=== PATIENT | male | born 1960 | race Caucasian/White ===

== ENCOUNTER 2020-09-08 14:07 | Outpatient (CLI) | payer BC, SELFPAY ==
[2020-09-08 14:23] LABS: Basophils Absolute Auto 0.06 K/mm3 (0.00-0.10); Basophils Percent Auto 0.5 % (0.0-1.0); Eosinophils Absolute Auto 0.42 K/mm3 (0.02-0.50); Eosinophils Percent Auto 3.3 % (1.0-6.0); Hematocrit 39.7 % (40.0-54.0); Hemoglobin 13.5 g/dL (14.0-18.0); Immature Granulocyte Absolute 0.06 K/mm3 (0.00-0.00); Immature Granulocyte Percent A 0.5 % (0.0-0.0); Lymphocytes Absolute Auto 2.22 K/mm3 (1.10-4.50); Lymphocytes Percent Auto 17.3 % (18.0-42.0); Mean Corpuscular Hemoglobin 31.2 pg (27.0-31.0); Mean Corpuscular Volume 91.7 fL (78.0-102.0); Mean Platelet Volume 8.7 fl (8.7-11.0); Monocytes Absolute Auto 1.37 K/mm3 (0.10-0.90); Monocytes Percent Auto 10.7 % (2.0-11.0); Neutrophils Absolute Auto 8.7 K/mm3 (1.7-7.2); Neutrophils Percent Auto 67.7 % (50.0-70.0); Platelet Count Result 197 K/mm3 (150-420); Red Blood Count 4.33 M/mm3 (4.70-6.10); Red Cell Distribution Width 12.8 % (11.6-14.4); White Blood Count 12.9 K/mm3 (4.8-10.8)
[2020-09-08 15:46] LABS: Alanine Aminotransferase 37 U/L (16-63); Albumin Level 3.3 g/dL (3.4-5.0); Alkaline Phosphatase 91 U/L (46-116); Anion Gap 7 mmol/L (8-16); Aspartate Amino Transferase 23 U/L (15-37); Bilirubin,Total 0.5 mg/dL (0.00-1.00); Blood Urea Nitrogen 14 mg/dL (7-18); Calcium 8.8 mg/dL (8.5-10.1); Carbon Dioxide 31 mmol/L (21-32); Chloride 101 mmol/L (98-108); Estimated Glomerular Filt Rate > 60; Glucose 109 mg/dL (70-99); Lipase 57 U/L (73-393); Osmolality Calculated 289 mOsm/kg (285-295); Potassium 3.9 mmol/L (3.5-5.1); Sodium 139 mmol/L (136-145); Total Protein 7.1 g/dL (6.4-8.2)
== END 2020-09-08 14:08 | disposition home or self-care (01) ==
LOC: CHSLAB 14:09
PROVIDERS: PCP Family Medicine; Visit Provider Family Medicine
DX: R10.9 Unspecified abdominal pain (principal)
CPT/HCPCS: 36415; 80053; 83690; 85025

== ENCOUNTER 2021-03-10 11:02 | Outpatient (CLI) | payer BC, SELFPAY ==
[2021-03-10 12:57] LABS: SARS-CoV-2 RNA PCR Negative (Negative)
== END 2021-03-10 11:03 | disposition home or self-care (01) ==
LOC: CHSLAB 11:05
PROVIDERS: PCP Family Medicine; Visit Provider Family Medicine
DX: R05 Cough (principal); Z20.822 Contact with and (suspected) exposure to COVID-19
CPT/HCPCS: C9803; U0003; U0005

== ENCOUNTER 2021-09-18 10:10 | Outpatient (CLI) | payer BC, SELFPAY ==
--- NOTE | ~2021-09-18 | CT_ITS ---
EXAMINATION: CT lung screening DATE: 09/18/2021 10:24 INDICATION: Personal history of nicotine dependence. TECHNIQUE: Computed tomography (CT) of the chest was performed without intravenous contrast. The dose -length product was 375.03 mGy-cm. Automated exposure control and iterative reconstruction technique were employed. COMPARISON: 07/24/2018 FINDINGS: Moderate emphysema. There is an 8 mm left upper lobe nodule which is not significantly razo ged from prior examination dated 07/24/2018. Moderate emphysema. No new pulmonary nodules or masses. No endobronchial lesions. No thoracic lymphadenopathy. The upper abdomen is unremarkable. There is a partially visualized abdominal aortic stent. Mild thoracic lymphadenopathy. Mild compression deformit ies of mid thoracic vertebra appear chronic. IMPRESSION: 1. Lung-RADS category 2: Benign appearance or behavior. Continue annual screening with noncontrast lo w-dose chest CT in 12 months. Reviewed, dictated and finalized at location B. NET STRINGER IMPRESSION: 1. Lung-RADS category 2: Benign appearance or behavior. Continue annual screeni ng with noncontrast low-dose chest CT in 12 months.
== END 2021-09-18 10:11 | disposition home or self-care (01) ==
LOC: CHSIMG 10:11
PROVIDERS: PCP Family Medicine; Visit Provider Family Medicine
DX: Z12.2 Encounter for screening for malignant neoplasm of respiratory organs (principal); Z87.891 Personal history of nicotine dependence
CPT/HCPCS: 71271

== ENCOUNTER 2021-09-21 08:41 | Outpatient (CLI) | payer BC, SELFPAY | END 2021-09-21 08:42 | disposition home or self-care (01) | LOC: CHSCARD 08:47 | PROVIDERS: PCP Family Medicine; Visit Provider Family Medicine | DX: J44.9 Chronic obstructive pulmonary disease, unspecified (principal) | CPT/HCPCS: 94060; 94726; 94729 ==

== ENCOUNTER 2022-09-07 02:25 | Emergency (ER) | payer BC, SELFPAY ==
[2022-09-07] VITALS (15 sets, daily range): BP systolic 129–157; BP diastolic 65–103; PULSE 60–76; RESP 12–19; TEMP 36.6; O2SAT 92–96
--- NOTE | ~2022-09-07 | XR_ITS ---
Portable chest x-ray Comparison: 07/23/2019 Clinical History: Shortness of breath Findings: Lungs are clear, without focal consolidation or pleural effusion. Possible COPD. Cardiome diastinal silhouette is stable, with pacemaker device. Bones and soft tissues are unremarkable. Impression: COPD. Clear lungs. Pacemaker device. Reviewed, dictated and finalized at location . GUIDER STOVES Impression: COPD. Clear lungs. Pacemaker device.
--- NOTE | ~2022-09-07 | CT_ITS ---
Clinical Indication: Shortness of breath CT Scan of the Chest with Contrast: Technique: Contiguous sections were acquired throughout the chest after intravenous administration of 100 cc of Omnipaque 350. Dose reduction technique was used on this scan by utilizing automated expos ure control and iterative reconstruction technique. The dose-length product (DLP) was 937.41 mGy-cm. COMPARISON: 09/18/2021 an 07/24/2018 Findings: There is no evidence of any significant mediastinal, hilar or axillary lymphadenopathy. There is no f illing defect in the pulmonary arterial tree to suggest pulmonary embolus. There is no evidence of ao rtic dissection or aneurysm. There is no evidence of pleural or pericardial effusion. Moderate emphysema noted. There is a 9 mm ovoid left upper lobe pulmonary nodule (axial image 42), wh ich is essentially unchanged from prior exams. Images through the upper abdomen reveal no abnormalities. Impression: No evidence of pulmonary embolus, aortic dissection, or aortic aneurysm. Moderate emphysema. 9 mm left upper lobe pulmonary nodule, essentially stable since 07/24/2018. Stability over this time interval is consistent with benignity. Reviewed, dictated and finalized at location . METRIST OWNER Impression: No evidence of pulmonary embolus, aortic dissection, or aortic aneurysm. Moderate emphysema. 9 mm left upper lobe pulmonary nodule, essentially stable since 07/24/2018. Sta bility over this time interval is consistent with benignity.
--- NOTE | 2022-09-07 02:29 | ECG_ITS ---
Measurements Intervals [place] Rate: 72 P: 55 RI: 195 QRS: -46 QRSD: 142 T: 107 QT: 423 QTc: 464 Interpretive Statements SINUS RHYTHM LEFT AXIS DEVIATION [QRS AXIS < -30] LEFT VENTRICULAR HYPERTROPHY WITH SECONDARY REPOLARIZATION ABNORMALITY INTRAVENTRICULAR CONDUCTION DELAY ABNORMAL ECG COMPARED TO ECG 04/06/2019 09:17:50 NO SIGNIFICANT CHANGES Electronically Signed On 09-07-2022 13:20:13 ADMINISTRATIVE AND PROGRAM SPECIALIST by Andrew Russo M.D.
[2022-09-07 02:50] LABS: Basophils Absolute Auto 0.08 K/mm3 (0.00-0.10); Eosinophils Absolute Auto 0.26 K/mm3 (0.02-0.50); Eosinophils Percent Auto 3.1 % (1.0-6.0); Hematocrit 50.2 % (40.0-54.0); Hemoglobin 16.2 g/dL (14.0-18.0); Immature Granulocyte Absolute 0.03 K/mm3 (0.00-0.00); Immature Granulocyte Percent A 0.4 % (0.0-0.0); Lymphocytes Absolute Auto 2.94 K/mm3 (1.10-4.50); Lymphocytes Percent Auto 35.3 % (18.0-42.0); Mean Corpuscular HGB Conc 32.3 g/dL (32.0-36.0); Mean Corpuscular Hemoglobin 30.6 pg (27.0-31.0); Mean Corpuscular Volume 94.7 fL (78.0-102.0); Mean Platelet Volume 8.6 fl (8.7-11.0); Monocytes Absolute Auto 1.18 K/mm3 (0.10-0.90); Monocytes Percent Auto 14.2 % (2.0-11.0); Neutrophils Absolute Auto 3.8 K/mm3 (1.7-7.2); Platelet Count Result 209 K/mm3 (150-420); Red Cell Distribution Width 13.4 % (11.6-14.4); White Blood Count 8.3 K/mm3 (4.8-10.8)
[2022-09-07] MEDS: methylPREDNISolone SOD SUCC 125 MG VIAL IV PUSH (02:50)
[2022-09-07 03:00] LABS: Partial Thromboplastin Time 37.1 SEC (23.90-30.70); Prothrombin Time 10.9 Seconds (9.50-12.10)
[2022-09-07 03:02] LABS: Base Excess ABG 0.7 mmol/L (0-2); HCO3 ABG 25.3 mmol/L (23-29); Oxygen Content ABG 22.5 %vol (16.0-22.0); Oxygen Saturation ABG 96.7 % (95-97); Oxyhemoglobin 91.5 % (94-100); PCO2 ABG 40.8 mmHg (35-45); PO2 ABG 87.3 mmHg (80-90); Total Hemoglobin 17.5 g/dL (12.0-18.0); pH ABG 7.41 (7.35-7.45)
[2022-09-07 03:03] LABS: Modified Allen's Test Pass; Site Drawn RIGHT RADIAL
[2022-09-07 03:04] LABS: Device OTHER DEVICE
[2022-09-07 03:05] LABS: Alanine Aminotransferase 28 U/L (16-63); Albumin Level 3.6 g/dL (3.4-5.0); Alkaline Phosphatase 87 U/L (46-116); Anion Gap 5 mmol/L (8-16); Aspartate Amino Transferase 22 U/L (15-37); Bilirubin,Total 0.3 mg/dL (0.00-1.00); Blood Urea Nitrogen 20 mg/dL (7-18); Calcium 8.6 mg/dL (8.5-10.1); Carbon Dioxide 31 mmol/L (21-32); Chloride 105 mmol/L (98-108); Estimated CRCL calculation 103 ml/min; Estimated Glomerular Filt Rate > 60; Glucose 110 mg/dL (70-99); Magnesium 1.9 mg/dL (1.8-2.4); NT Pro B Type Natriuretic Pept 53 pg/mL (0-125); Osmolality Calculated 295 mOsm/kg (285-295); Potassium 3.9 mmol/L (3.5-5.1); Sodium 141 mmol/L (136-145); Total Protein 6.8 g/dL (6.4-8.2); Troponin I 15.5 ng/L (0.00-60.4)
[2022-09-07] MEDS: IPRATROPIUM 0.5 MG/ALBUTEROL SULFATE 2.5 MG AMPUL.NEB 3 ML INHALATION (03:27)
[2022-09-07 03:30] LABS: Influenza A QL RT-PCR Negative (Negative); Influenza B QL RT-PCR Negative (Negative); RSV RNA, RT-PCR Negative (Negative); SARS-CoV-2 RNA PCR Negative (Negative)
[2022-09-07 03:42] LABS: Add Urine Microscopic? YES; Appearance Urine Clear (Clear); Bilirubin Urine Negative (Negative); Blood Urine 2+ (Negative); Color Urine Yellow (Yellow); Glucose Urine UA Negative (Negative); Ketones Urine Negative (Negative); Leukocyte Esterase Ur Negative LEU/UL (Negative); Nitrate Urine Negative (Negative); Protein Urine Negative (Negative); Specific Grav Ur 1.015 (1.010-1.020); Urobilinogen Urine 0.2 mg/dL (0.2-1.0); pH Urine 6.5 (5.0-8.0)
[2022-09-07 03:47] LABS: Bacteria Urine Trace /hpf; RBC Urine 21-50 /hpf (0-2); Squamous Epithelial Cell Urine None seen /hpf (Few); WBC Urine 0-3 /hpf (0-3)
--- NOTE | 2022-09-07 05:25 | ED.SOB ---
HPI - SOB/Dyspnea General Chief Complaint: Shortness of Breath/Dyspnea Stated Complaint: SOB Source: patient and family Mode of arrival: EMS Limitations: no limitations History of Present Illness HPI Narrative: this is a 8-year-old gentleman that presents with increasing shortness of breath x1 week and overnight early this morning felt like he was having harder his breathing productive no chest pain no fever chills no abdominal pain no flank pain, patient does have a history of COPD and is a smoker with a history of hypertension. MD elicited complaint: shortness of breath and cough Pertinent past history: COPD Onset (ago): day(s) Timing: constant Severity: mild Related Data Home Medications Medication Instructions Recorded Confirmed amlodipine 5 mg tablet 5 mg PO DAILY 09/07/22 09/07/22 desmopressin 10 mcg/spray (0.1 mL) 10 spray intranasal DAILY 09/07/22 09/07/22 nasal spray (non-refrigerated) metoprolol succinate 25 mg 25 mg PO DAILY 09/07/22 09/07/22 tablet,extended release 24 hr testosterone cypionate 200 mg/mL 200 mg IM [id number] 09/07/22 09/07/22 intramuscular oil Allergies Allergy/AdvReac Type Severity Reaction Status Date / Time aspirin Allergy Unknown Other Verified 09/07/22 02:52 No Known Allergies Allergy Unverified 04/10/19 12:39 Review of Systems Review of Systems: All systems reviewed & are unremarkable except as noted in HPI and below PMFSH Past Medical History Medical History HTN (hypertension) Family History Family History Sibling Family history of malignant neoplasm Mother Family history of chronic obstructive pulmonary disease Family history of malignant neoplasm of breast Other Diabetes mellitus Family history of cardiovascular disease Social History Social History Smoking status: Heavy tobacco smoker Alcohol intake: never Exam Const: General: healthy appearing Nutritional Appearance: well nourished Orientation/consciousness: patient oriented x3 Limitations: no limitations HENMT: Head: normal to inspection Face/Nose/Sinus: Normal external nose present Face and sinus: normal facial exam Mouth: Yes Normal oral and palatal mucosa present Eyes: Conjunctivae: conjunctivae normal Pupils: Equal, round and reactive pupils present EOM: EOMs intact bilaterally Direct Ophthalmoscopy: no photophobia Neck: Neck: normal visual inspection Chest: Chest palpation & inspection: normal inspection of the chest Resp: Effort & Inspection: normal respiratory effort Auscultation: clear to auscultation bilaterally Cardio: Rate: regular rate Rhythm: regular rhythm GI: GI Palp: Yes Soft to palpation Auscultation: normal bowel sounds : General: Yes bladder normal to palpation Urinary Catheter: Urinary Catheter: patent and draining Back/Spine/Pelvis: Back: no CVA tenderness Skin: General skin exam: normal color Rashes: no rashes Wounds: no wounds Neuro: General: patient oriented x3 Cranial nerves: Yes Nystagmus not present Speech: normal speech Extrem: General: normal to inspection Psych: Mental Status: mental status grossly normal Affect: normal affect Course Course Emergency Course: patient received a breathing treatment and IV steroids patient breathing has improved labs reviewed patient had an elevated D-dimer and CTA performed shows no pulmonary embolism Vital Signs Vital signs: Vital Signs Temperature 36.6 C 09/07/22 02:31 Pulse Rate 72 09/07/22 02:31 Respiratory Rate 18 09/07/22 02:31 Blood Pressure 129/103 H 09/07/22 02:31 Pulse Oximetry 96 09/07/22 02:31 Oxygen Delivery Room Air 09/07/22 02:31 Temperature 36.6 C 09/07/22 02:31 Pulse Rate 68 09/07/22 03:33 Respiratory Rate 12 09/07/22 03:33 Blood Pressure 137/71 09/07/22 03:33 Pulse Oximetr
== END 2022-09-07 05:36 | disposition home or self-care (01) ==
PROVIDERS: Emergency Provider Emergency Medicine; PCP Family Medicine
DX: J44.1 Chronic obstructive pulmonary disease with (acute) exacerbation (principal); I10 Essential (primary) hypertension; F17.200 Nicotine dependence, unspecified, uncomplicated; Z20.822 Contact with and (suspected) exposure to COVID-19
CPT/HCPCS: 36415; 36600; 71045; 71275; 80053; 81001; 82805; 83735; 83880; 84484; 85025; 85380; 85610; 85730; 87040; 87637; 93005; 94640; 96374; 99284; J2930; Q9967

== ENCOUNTER 2023-08-22 15:36 | Outpatient (CLI) | payer BC, OTHER, SELFPAY ==
--- NOTE | ~2023-08-22 | XR_ITS ---
EXAMINATION: XR chest 2V 08/22/2023 15:52 INDICATION: Shortness of breath. History of COPD. PROCEDURE: 2 view chest COMPARISON: Comparison to multiple prior studies sequentially, with oldest reviewed study dated 06/29. FINDINGS: The lungs are clear. The cardiomediastinal silhouette is within normal limits. There are no pleural effusions. There is no pneumothorax suspected. Stable position of pacemaker leads. IMPRESSION: 1: NO ACUTE CARDIOPULMONARY DISEASE. Reviewed, dictated and finalized at location L. OR OF OPTOMETRY
== END 2023-08-22 15:37 | disposition home or self-care (01) ==
LOC: CHSIMG 15:37
PROVIDERS: PCP Family Medicine; Visit Provider Family Medicine
DX: R05.3 Chronic cough (principal)
CPT/HCPCS: 71046

== ENCOUNTER 2023-08-26 09:58 | Outpatient (CLI) | payer BC, OTHER, SELFPAY ==
--- NOTE | 2023-08-26 10:03 | ECHO_ITS ---
Patient Info Name: Alejandro Jang Age: 63 years : 1960 Gender: Male Ht: 75 in Wt: 260 lbs BSA: 2.53 m2 HR: 75 bpm BP: 168 / 88 mmHg Heart Rhythm: Sinus Rhythm Technical Quality: Good Exam Date: 08/26/2023 11:11 AM Exam Location: Echo Lab Patient Status: Outpatient Admit Date: 08/26/2023 Staff Ordering Physician: Niranjan Rose MD Manager Transplant: Mireille Bernal RDCS Attending Provider: Niranjan Rose MD Referring Physician: Rose HALL; Exam Type: CA echo doppler color flow Study Info Indications - ABN EKG Complete two-dimensional, color flow and Doppler transthoracic echocardiogram is performed. Summary 1. Complete two-dimensional, color flow and Doppler transthoracic echocardiogram is performed. 2. Left ventricular chamber dimension is normal. 3. Left ventricular systolic function is normal, estimated at 55-60%. 4. There is mild concentric increased left ventricular wall thickness. 5. The left ventricular diastolic function is grade I diastolic dysfunction. 6. E/e' 8 is minimally elevated. 7. No pulmonary hypertension, estimated pulmonary arterial systolic pressure is 11 mmHg. Left Ventricle E/e' 8 is minimally elevated. Left ventricular chamber dimension is normal. Left ventricular systolic function is normal, estimated at 55-60%. There is mild concentric increased left ventricular wall thickness. The left ventricular diastolic function is grade I diastolic dysfunction. Right Ventricle Right ventricular systolic function is normal based on normal TAPSE 2.9 cm. Right ventricular chamber dimension is not well visualized. Left Atria Left atrial chamber dimension is normal. Right Atria Right atrial chamber dimension is normal. Aortic Valve The aortic valve is trileaflet. There is no aortic valve stenosis. There is no aortic valve regurgitation. Pulmonic Valve There is no pulmonic regurgitation. Mitral Valve There is no mitral valve stenosis. There is no mitral valve regurgitation. Tricuspid Valve There is no tricuspid valve regurgitation. No pulmonary hypertension, estimated pulmonary arterial systolic pressure is 11 mmHg. Pericardium/Pleural There is no pericardial effusion. Inferior Vena Cava Normal inferior vena cava with >50% collapse upon inspiration consistent with normal right atrial pressure, 5 mmHg. Aorta The aortic root size at the sinus of Valsalva is normal. Left Ventricular Outflow Tract Name Value Normal LVOT 2D LVOT Diameter 2.1 cm LVOT Doppler LVOT Peak Velocity 96 cm/s LVOT Peak Gradient 3 mmHg LVOT Mean Gradient 1 mmHg LVOT VTI 22 cm LVOT VTI/AV VTI Ratio 0.7 LVOT Stroke Volume 81 ml Pulmonic Valve Name Value Normal RVOT Doppler RVOT Peak Gradient 2 mmHg PV Doppler -------
== END 2023-08-26 09:59 | disposition home or self-care (01) ==
LOC: CHSIMG 10:00
PROVIDERS: PCP Family Medicine; Visit Provider Family Medicine
DX: R94.31 Abnormal electrocardiogram [ECG] [EKG] (principal)
CPT/HCPCS: 93306

== ENCOUNTER 2023-09-20 08:32 | Outpatient (CLI) | payer BC, SELFPAY ==
--- NOTE | ~2023-09-20 | CT_ITS ---
CT Scan of the Chest without Contrast: Clinical Indication: Lung cancer screening, smoking history Technique: Contiguous sections were acquired throughout the chest without intravenous contrast. Dose reduction technique was used on this scan by utilizing automated exposure control and iterative recon struction technique. The dose-length product (DLP) was 369.67 mGy-cm. COMPARISON: 09/07/2022 Findings: There is no evidence of any significant mediastinal, hilar or axillary lymphadenopathy. The mediastin al soft tissues appear normal. There is no evidence of pleural or pericardial effusion. Stable 9 mm left upper lobe pulmonary nodule present. There is mild emphysematous change of the lungs . Images through the upper abdomen reveal probable partial visualization of the upper aspect of an abdo mata aortic aneurysm. Impression: Lung RADS 2: Benign appearance. 12 month follow-up screening CT advised. Possible partially imaged abdominal aortic aneurysm. Consider dedicated imaging evaluation as indicat ed. Reviewed, dictated and finalized at [facility]. ORK PROJECT MANAGER Impression: Lung RADS 2: Benign appearance. 12 month follow-up screening CT advised. Possible partially imaged abdominal aortic aneurysm. Consider dedicated imaging evaluation as indicated.
== END 2023-09-20 08:33 | disposition home or self-care (01) ==
LOC: CHSIMG 08:33
PROVIDERS: PCP Family Medicine; Visit Provider Family Medicine
DX: Z12.2 Encounter for screening for malignant neoplasm of respiratory organs (principal); Z87.891 Personal history of nicotine dependence
CPT/HCPCS: 71271

== ENCOUNTER 2023-10-02 12:45 | Outpatient (CLI) | payer BC, SELFPAY | END 2023-10-02 12:46 | disposition home or self-care (01) | LOC: CHSCARD 12:46 | PROVIDERS: PCP Family Medicine; Visit Provider Family Medicine | DX: J44.9 Chronic obstructive pulmonary disease, unspecified (principal) | CPT/HCPCS: 94060; 94726; 94729 ==

== ENCOUNTER 2023-12-24 10:09 | Outpatient (CLI) | payer BC, SELFPAY ==
--- NOTE | ~2023-12-24 | XR_ITS ---
Right Hand Technique: PA, oblique, and lateral views were obtained. Clinical History: Wire in the second digit Findings: No acute fracture or dislocation is seen. Osseous alignment is anatomic. Joint spaces are p reserved. Possible soft tissue swelling of the index finger. No radiopaque foreign body seen. Impression: Possible soft tissue swelling of the index finger. No radiopaque foreign body seen. Reviewed, dictated and finalized at location . Impression: Possible soft tissue swelling of the index finger. No radiopaque foreign body s een.
[2023-12-24 10:26] LABS: Basophils Absolute Auto 0.07 K/mm3 (0.00-0.10); Basophils Percent Auto 0.6 % (0.0-1.0); Eosinophils Absolute Auto 0.09 K/mm3 (0.02-0.50); Eosinophils Percent Auto 0.8 % (1.0-6.0); Hematocrit 46.8 % (40.0-54.0); Hemoglobin 15.7 g/dL (14.0-18.0); Immature Granulocyte Absolute 0.05 K/mm3 (0.00-0.00); Immature Granulocyte Percent A 0.4 % (0.0-0.0); Lymphocytes Absolute Auto 2.42 K/mm3 (1.10-4.50); Lymphocytes Percent Auto 20.6 % (18.0-42.0); Mean Corpuscular HGB Conc 33.5 g/dL (32-36); Mean Corpuscular Hemoglobin 31.1 pg (27.0-31.0); Mean Corpuscular Volume 92.7 fL (78.0-102.0); Mean Platelet Volume 8.6 fl (8.7-11.0); Monocytes Percent Auto 7.6 % (2.0-11.0); Neutrophils Absolute Auto 8.24 K/mm3 (1.70-7.20); Platelet Count Result 203 K/mm3 (150-420); Red Blood Count 5.05 M/mm3 (4.70-6.10); Red Cell Distribution Width 13.1 % (11.6-14.4); White Blood Count 11.8 K/mm3 (4.8-10.8)
[2023-12-24 10:54] LABS: Alanine Aminotransferase 35 U/L (16-63); Albumin Level 3.8 g/dL (3.4-5.0); Alkaline Phosphatase 88 U/L (46-116); Anion Gap 9 mmol/L (4-12); Aspartate Amino Transferase 26 U/L (15-37); Bilirubin,Total 0.5 mg/dL (0.00-1.00); Blood Urea Nitrogen 12 mg/dL (7-18); Calcium 8.7 mg/dL (8.5-10.1); Carbon Dioxide 29 mmol/L (21-32); Chloride 103 mmol/L (98-108); Estimated Glomerular Filt Rate > 60; Glucose 102 mg/dL (70-99); Osmolality Calculated 291 mOsm/kg (285-295); Potassium 4.2 mmol/L (3.5-5.1); Sodium 141 mmol/L (136-145); Total Protein 6.8 g/dL (6.4-8.2)
== END 2023-12-24 10:10 | disposition home or self-care (01) ==
LOC: CHSLAB 10:11
PROVIDERS: PCP Family Medicine; Visit Provider Nurse Practitioner Family
DX: S69.91XA Unspecified injury of right wrist, hand and finger(s), initial encounter (principal); M25.441 Effusion, right hand
CPT/HCPCS: 36415; 73130; 80053; 85025

== ENCOUNTER 2023-12-30 14:58 | Outpatient (CLI) | payer BC, SELFPAY ==
--- NOTE | ~2023-12-30 | XR_ITS ---
EXAMINATION: XR finger 2nd RT min 2V DATE: 12/30/2023 15:23 INDICATION: Right hand second digit pain. TECHNIQUE: 3 views of right hand second digit were obtained. COMPARISON: Right hand radiographs 12/24/2023 FINDINGS: Bone alignment is normal. No fracture. There is mild osteoarthritis of second metacarpophal angeal joint. IMPRESSION: 1. Mild osteoarthritis of second metacarpophalangeal joint. Reviewed, dictated and finalized at location A.
[2023-12-30 15:18] LABS: Hematocrit 46.1 % (40.0-54.0); Hemoglobin 15.2 g/dL (14.0-18.0); Mean Corpuscular Hemoglobin 30.8 pg (27.0-31.0); Mean Corpuscular Volume 93.3 fL (78.0-102.0); Mean Platelet Volume 8.3 fl (8.7-11.0); Platelet Count Result 207 K/mm3 (150-420); Red Blood Count 4.94 M/mm3 (4.70-6.10); Red Cell Distribution Width 13.3 % (11.6-14.4); White Blood Count 9.5 K/mm3 (4.8-10.8)
[2023-12-30 16:34] LABS: Anion Gap 9 mmol/L (4-12); Blood Urea Nitrogen 13 mg/dL (7-18); Calcium 8.5 mg/dL (8.5-10.1); Carbon Dioxide 29 mmol/L (21-32); Chloride 103 mmol/L (98-108); Estimated Glomerular Filt Rate > 60; Glucose 87 mg/dL (70-99); Osmolality Calculated 291 mOsm/kg (285-295); Potassium 3.9 mmol/L (3.5-5.1); Sodium 141 mmol/L (136-145)
== END 2023-12-30 14:59 | disposition home or self-care (01) ==
LOC: CHSLAB 15:01
PROVIDERS: PCP Family Medicine; Visit Provider Family Medicine
DX: M79.641 Pain in right hand (principal); M19.041 Primary osteoarthritis, right hand
CPT/HCPCS: 36415; 73140; 80048; 85027

== ENCOUNTER 2024-10-09 07:07 | Outpatient (CLI) | payer BC, SELFPAY ==
--- NOTE | ~2024-10-09 | CT_ITS ---
CT Scan of the Chest without Contrast: Clinical Indication: Lung cancer screening, nicotine dependence Technique: Contiguous sections were acquired throughout the chest without intravenous contrast. Dose reduction technique was used on this scan by utilizing automated exposure control and iterative recon struction technique. The dose-length product (DLP) was 258.31 mGy-cm. COMPARISON: 09/20/2023 Findings: There is no evidence of any significant mediastinal, hilar or axillary lymphadenopathy. The mediastin al soft tissues appear normal. There is no evidence of pleural or pericardial effusion. Stable 9 mm circumscribed ovoid nodule in the left upper lobe present (axial image 45). There is mild to moderate emphysema. Images through the upper abdomen reveal no abnormalities. Impression: Lung RADS 2: Benign appearance. 12 month follow-up screening CT advised. Reviewed, dictated and finalized at [facility]. Impression: Lung RADS 2: Benign appearance. 12 month follow-up screening CT advised.
--- OUTSIDE RECORDS SUMMARY | 2024-10-09 07:11 | XMS_ITS | Encounter Summary ---
Author Organization [facility] Address [address] [place] [address] Care Team Providers Care Flux Plant Operator Name Role Phone Niranjan Rose MD Primary Care Provider [phone] Jonathan Becker MD Unavailable Unavailabl e Elba Maec MD Unavailable [phone] Frank Smith MD Unavailable [phone] Ryan Patricia MD Unavailable [phone] Orlando Sosa MD Unavailable Encounter Details Date Type Department Care Team (Late st Contact Info) Description 01/23/2023 MyChart Message Enc [facility] [address] [id number] [facility] Provider Air Quality Message Social History Tobacco Use Types Packs/Day Years Used Date Smoking Tobacco: Every Day Cigarettes Smokeless Tobacco: Never Alcohol Use Standard Drinks/Week Comments No 0 (1 standard drink = 0.6 oz pur e alcohol) Sex and Gender Information Value Date Recorded Sex Assigned at Male 09/25/2024 4:31 PM PROFESSOR OF PRACTICE Legal Sex Male 10:15 AM CDT Gender Identity Not on file Sexual Orientation Not on file 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 Answer Date of Assessment Author Status No 06/18/2020 9:56 PM PROFESSOR OF PRACTICE Activ e * Do you have serious difficulty walking or climbing stairs? Answer Date of Assessment Author Status No 06/18/2020 9:56 PM Mere Ortega RN Active * Do you have difficulty dressing or bathing? Answer Date of Assessment Author Status No 06/18/2020 9:56 PM Mere Ortega RN Active * Because of a physical, mental, or emotional condition, do you have difficulty doing errands alone such as visiting a doctor's office or shopping? Answer Date of Assessment Author Status No 06/18/2020 9:56 PM Mere Ortega RN Active documented as of this encounter Mental Status * Because of a physical, mental, or emotional condition, do you have serious difficulty concentrating, remembering, or making decisions? Answer Entry Date Author Status No 06/18/2020 9:56 PM Mere Ortega RN Active documented in this encounter Plan of Treatment Upcoming Encounters Date Type Department Care Team (Late st Contact Info) Description 10/16/2024 1:00 PM CDT Appointment [facility] [address] [place] [address] Orlando Sosa MD [address] [place] [phone] 10/16/2024 2:00 PM CDT Appointment [facility] [address] [place] [address] Orlando Sosa MD [address] [place] [phone] 11/27/2024 10:30 AM CDT Allied Health/Nurse Visit [facility] [address] [place] [address] Frank Smith MD [address] [place] [address] 11/27/2024 10:45 AM CDT Office Visit [facility] [address] [place] [phone] Frank Smith MD [address] [place] [address] 01/19/2025 2:00 AM CDT Allied Health/Nurse Visit [facility] [address] [place] [phone] Frank Smith MD [address] [place] [address] documented as of this encounter Visit Diagnoses Not on filedocumented in this encounter Care Teams Flux Plant Operator Relationship Specialty Start Date End Date Niranjan Rose MD [address] [place] [address] PCP - General FAMILY PRACTICE 05/29/16 Jonathan Becker MD [address] [place] [address] [place] Residential Instructor CARDIOVASCULAR DISEASE 05/29/16 09/13/24 Elba Mace MD [address] [place] [address] Consulting Physician VASCULAR SURGERY 07/19/20 09/13/24 Frank Smith MD [address] [place] [phone] EP Residential Instructor CLINICAL CARDIAC ELECTROPHYSIOLOGY 08/15/20 Ryan Patricia MD [address] [facility] [address] [place] [address] Physician INTERVENTIONAL CARDIOLOGY 10/10/23 Orlando Sosa MD [address] [place] [phone] Consulting Physician VASCULAR SURGERY 11/22/23 documented as of this encounter
--- OUTSIDE RECORDS SUMMARY | 2024-10-09 07:11 | XMS_ITS | CONTINUITY OF CARE DOCUMENT ---
Author Name nohemyricardo nohemyricardo Address Unknown Organization [facility] Address [address] [place] [address] Phone [phone] Care Team Providers Care Inside Parts Sales Name Role Phone Vincenzo Escalona MD Unavailable MAE ARNOLD MD Unavailable MAE ARNOLD MD Unavailable [phone] PROBLEMS Condition Status Date Provider Notes HTN essential active Vincenzo Escalona MD Shortness of breath active Vincenzo Escalona MD COPD active Vincenzo Escalona MD Tobacco abuse active Vincenzo Escalona MD Dizziness active Vincenzo Escalona MD SVT--event monitor results pending active Urbano Escalona MD ENCOUNTERS Date Type Provider Location Encounter Diag nosis - In-person encounter Office Visit [facility] Evangelista Office SVT--event monitor results pending - In-person encounter Office Visit [facility] Office HTN essentialShortne ss of breathCOPDTobacco abuseDizziness VITAL SIGNS Date Observation Value Provider Body Mass Index (Ratio) 32.13 kg/m2 Unruly Escalona MD blood pressure, diastolic 86 mm[Hg] Us ne Escalona MD blood pressure, systolic 136 mm[Hg] Annita Escalona MD pulse rate 84 /min Vincenzo Escalona MD oxygen saturation, oximetry 95 % Vincenzo Escalona MD respiratory rate E&M 16 /min Vincenzo mccall MD weight E&M 264 [lb_av] Vincenzo Escalona MD height E&M 76 [in_i] Vincenzo Escalona MD blood pressure, diastolic 88 mm[Hg] Us ne Escalona MD blood pressure, systolic 150 mm[Hg] Annita Escalona MD pulse rate 89 /min Vincenzo Escalona MD oxygen saturation, oximetry 94 % Vincenzo Escalona MD respiratory rate E&M 20 /min Vincenzo mccall MD weight E&M 269 [lb_av] Vincenzo Escalona MD ALLERGIES Allergy Name Onset Date Reaction Criticality Status ASA High Criticality active HISTORY OF MEDICATION USE Medication Status Instructions Dates Provider Indications Com ments PHYSICIANS EZ USE M-PRED 40-0.5 MG/ML-% INJECTION KIT active Vincenzo Escalona MD AZITHROMYCIN TABS active Vincenzo mccall MD PROAIR HFA AEROSOL SOLUTION active Vincenzo Escalona MD IMITREX 5 MG/ACT NASAL SOLUTION active PRN Vincenzo Escalona MD DESMOPRESSIN ACETATE SOLUTION active Vincenzo Escalona MD APETEX ORAL ELIXIR active Vincenzo Escalona MD DEPO-TESTOSTERONE SOLUTION active Vincenzo Escalona MD SOCIAL HISTORY Date Observation Value Provider smoking status Current every day smoker U alla Escalona MD smoking/tobacco cess ation, patient education and counseling yes Vincenzo Escalona MD social history reviewed E&M revi ewed - no changes required Vincenzo Escalona MD quit smoking, stage ready Vincenzo casas MD number of years as a smoker 39 a Vincenzo Escalona MD smoking, date started 1975 Vincenzo Escalona MD cigarette use yes Vincenzo Levin social history reviewed E&M carolina mortensen - no changes required Vincenzo Escalona MD social history E&M Patient mikala saldivar smokes every day. Smoking History: P atannmarie currently smokes every day. P atannmarie has been counseled to quit. C urrently using Chantix. C ut down from 2.5ppd to 1pack in 4 days. Vincenzo Escalona MD smoking/tobacco cess ation, patient education and counseling yes Vincenzo Escalona MD smoking status current every day smoker U alla Escalona MD FAMILY HISTORY Family Member Condition Father Negative FH of A S C V D INSURANCE PROVIDERS Payer name Policy type / Coverage type Stout red constitution party ID [facility] Medicaid 1 [id number] TREATMENT PLAN Date Name Performer Follow-up faxed to jose Escalona MD Follow-up faxed to [facility]:Seems to be more related to his tobacco use rather than a cardiac etiology Vincenzo Escalona MD Follow-up faxed to [facility] pace:BP 136/86 Vincenzo Escalona MD Date Name Complete Echo STR - Routine
--- OUTSIDE RECORDS SUMMARY | 2024-10-09 07:11 | XMS_ITS | Clinical Summary ---
Author Organization [facility] Address [address] [place] [address] Care Team Providers Care Machine Chocolate Molder Name Role Phone Niranjan Rose MD Primary Care Provider [phone] Frank Smith MD Unavailable [phone] Ryan Patricia MD Unavailable [phone] Tanya Sosa MD Unavailable Allergies Active Allergy Reactions Criticality Noted Date Comments Aspirin Unknown 05/29/2016 Medications SUMAtriptan 100 MG tablet Take 1 tablet (100 mg total) by mouth every 2 (two) hours as needed for Migraine. Take one tablet at onset of headache; may repeat after two hours if needed. Active SUMAtriptan Succinate 6 MG/0.5ML Solution Inject 0.5 mLs (6 mg total) into the skin every hour as needed. Active testosterone cypionate 200 MG/ML injection 04/18/2020 Act belkis vitamin C 1000 MG tablet Take 1 tablet (1,000 mg total) by mouth daily. Active desmopressin (DDAVP NASAL) 0.01 % nasal spray 07/04/2022 Active SYMBICORT 160-4.5 MCG/ACT inhaler As needed 08/12/2023 Active ipratropium-alb uterol (DUONEB) 0.5-2.5 (3) MG/3ML Solution 10/07/2023 Act belkis losartan (COZAAR) 50 MG tablet 1 tablet (50 mg total) daily. 09/20/2023 Active atorvastatin (LIPITOR) 40 MG tablet TAKE 1 TABLET (40 MG TOTAL) BY MOUTH NIGHTLY AT BEDTIME. 90 tablet 3 12/30/2023 Active Active Problems Problem Noted Date Diagnosed Date Pacemaker 10/08/2021 Overview (10/08/2021): medtronic eliz xt dr carmelita [id number] dc-pm jun 08 2021 Type II endoleak of aortic graft 10/04/2020 Assessment & Plan (08/07/2022 2:01 PM BENZENE STILL UTILITY OPERATOR): Resolved. Assessment & Plan (10/04/2020 10:42 AM BENZENE STILL UTILITY OPERATOR): Appears to have a type II endoleak from the lumbar arteries and second one anteriorly. The second one may emmanate from the YOVANY versus a type III endoleak. Will repeat the CTA in 5 months and reassess. History of repair of aneurys m of abdominal aorta using endovascular stent graft 09/28/2020 Overview (09/28/2020): Infrarenal AAA and bilat common iliac artery repair 09-05-2020 Tobacco use 07/19/2020 Assessment & Plan (08/07/2022 2:09 PM BENZENE STILL UTILITY OPERATOR): We discussed smoking cessation again. He had quit for a period and resumed when he got sick. He is feeling better now and I encouraged him to try to quit smoking. He was referred to the [place] [facility]. Assessment & Plan (09/27/2021 9:40 AM BENZENE STILL UTILITY OPERATOR): He has been tobacco free for six months. Assessment & Plan (08/16/2020 9:52 AM BENZENE STILL UTILITY OPERATOR): He is using fewer cigarettes, but continues to smoke. We discussed smoking cessation again. He will redouble his efforts to quit. We discussed pharmacologic assistance and he declined. Assessment & Plan (07/19/2020 2:20 PM BENZENE STILL UTILITY OPERATOR): We discussed continued tobacco use as it relates to his aneurysm and eventual health concerns. I am optimistic he is going to quit. Infrarenal abdominal aortic aneurysm, without ru pture 07/12/2020 Overview (08/07/2022): 07/12/20 Ao: 5.1 cm x 4.8 cm RCIA: 3.3 Cm LCIA: 2.6 cm 09/05/20 EVAR with TREO graft 10/03/20 Ao: 5.4 cm x 4.5 cm LARA: no aneuysm LCIA: No aneusysm (Question endoleak at lumbars and possible YOVANY?) 03/13/21 CT: Stable aneurysm; decreased endoleak 09/27/21 CT: 5.1 cm x 4.9 cm BCIA- stable No endoleak visualized 08/07/22 Ao: 5.0 cm RCIA: 3.3 cm LCIA: 3.8 cm Assessment & Plan (08/07/2022 1:53 PM BENZENE STILL UTILITY OPERATOR): He has no symptoms of aortic aneurysmal disease. An aortoiliac duplex performed at [facility] on 08/07/22 demonstrates the aneurysm to measure 5.0 cm. We reviewed the results of the imaging and discussed the threshold for repair. We reviewed potential options for repair including endovascular aneurysm repair and open aortic repair. We discussed continued blood pressure management. Vitals from today were reviewed as were the current antihypertensive medications.He will follow-up inone year with an aortoiliac duplex. He was educated as to the signs and symptoms that should prompt earlier evaluation. Assessment & Plan (09/27/2021 9:40 AM BENZENE STILL UTILITY OPERATOR): CTA reviewed. The aneurysm size is stable. The bilateral common iliac artery aneurysms appear stable as well. The previously seen endoleaks appear to have resolved as well. Will have him follow-up in six months with an aortoiliac duplex. Assessment & Plan (03/23/2021 4:45 PM CDT): He returns today following endovascular aneurysm repair. He is doing well. A CTA of the abdomen and pelvis performed at [facility]} on 03/13/21 demonstrates the aneurysm to remain stable. There is no evidence of increased endoleak, it appears to be resolving and stable. The residual aneurysm size is decreased than his prior imaging study. We discusssed continued blood pressure management and reviewed the current medication regimen. We reviewed the results of the non-invasive testing. He will return to clinic in 6 months with A CTA of the abdomen and pelvis. Assessment & Plan (10/04/2020 10:39 AM BENZENE STILL UTILITY OPERATOR): He has a small endoleak from the lumbar arteries and a second one anteriorly, possibly from the YOVANY. The aneurysm size is stable without evidence of enlargement. Official radiology report pending. Based on my interpretation, will follow the endoleak expectantly. Will repeat his CTA in 5 months. Assessment & Plan (08/16/2020 9:49 AM BENZENE STILL UTILITY OPERATOR): We had a discussion again regarding management of his aneurysm. It currently measures 5.1 cm x 4.8 cm and while it does not meet the threshold for repair, the iliac arteries are large enough to warrant elective repair. We discussed open repair versus endovascular repair. I compared and contrasted the procedures and expected post-operative courses. We discussed risks and benefits unique to each procedure. With endovascular repair, we discussed bleeding, pseudoaneurysm formation, damage to the blood vessels, MA and stroke. We discussed the possible need for additional interventions over time and possible decrease in kidney function related to the contrast. For the open repair, we discussed pain, bleeding, infection, colon ischemia, renal insufficiency, , MA and stroke. At this time, he is leaning toward endovascular repair. This is currently the slow time at work and he would like to be fully recovered by October. In addition, endovascular repair does not have the attendant risk of hernia formation. Anticipate endovascular repair in the next 2 weeks. Assessment & Plan (07/19/2020 2:10 PM BENZENE STILL UTILITY OPERATOR): He presents for evaluation of an infrarenal abdominal aortic aneurysm. He has no symptoms of aortic aneurysmal disease.A CTA of the abdomen and pelvis performed at [facility] on 07/12/20 demonstrates the aneurysm to measure 5.1 cm x 4.8 cm. We reviewed the results of the imaging and discussed the threshold for repair. We discussed that he can participate in any activities and there are no limitations related to the diagnosis of an aneurysm. We discussed potential repair options including endovascular repair and open aortic repair. He and his are leaning toward earlier repair. Will have him follow-up in July 2020 to discuss and schedule. Iliac artery aneurysm, bilateral 07/11/2020 Overview (10/04/2020): 07/11/20 RCIA: 3.3 cm LCIA: 3.6 cm 09/05/20 EVAR with TREO 10/03/20 Iliac artery aneurysms resolved with EVAR Assessment & Plan (08/07/2022 1:54 PM BENZENE STILL UTILITY OPERATOR): Iliac aneurysms stable following endovascular repair. No new issues. Will folllow-up with repeat aortic duplex in one year. Assessment & Plan (10/04/2020 10:40 AM BENZENE STILL UTILITY OPERATOR): The bilateral iliac aneurysms appear to be successfully excluded. Will follow these up on the CTA in 5 months. Assessment & Plan (08/16/2020 9:51 AM BENZENE STILL UTILITY OPERATOR): His bilateral common iliac artery aneursyms are large enough to warrant repair. We discussed endovascular repair versus open repair. The discussion is outlined above. Based on his CT, we may be able to preserve both internal iliac arteries. Anticipate this will be done in the next few weeks. Heart block 06/18/2020 Syncope and collapse 09/22/2016 Cluster headache 09/22/2016 HTN (hypertension) COPD (chronic obstructive pu lmonary disease) ([facility]) Fatigue Pectus excavatum Hypogonadotropic hypogonadism ([facility]) CAD (coronary artery disease) Assessment & Plan (08/07/2022 2:04 PM BENZENE STILL UTILITY OPERATOR): He has known coronary disease and at his last cardiology appt with Dr. Smith he had runs of NSVT. He was started on a beta lisette on October 17. He developed a cough and tiredness after starting it. He was not clear on why he was taking a beta lisette to slow his heart rate with a pacemaker. He was also told by his PCP the beta lisette could cause his cough. Will notify Dr. Smith's office of his change in medication. He is supposed to see him in September of this year. Von Willebrand disease ([facility]) Resolved Problems Problem Noted Date Diagnosed Date Resolved Date Thoracic aortic aneurysm 07/05/2020 Encounters Date Type Department Care Team Description 09/29/2024 Telephone [facility] [address] [place] [address] Ryan Patricia MD Question 09/25/2024 12:54 PM BENZENE STILL UTILITY OPERATOR - 09/25/2024 11:59 PM BENZENE STILL UTILITY OPERATOR Hospital Encounter [place] [facility] [address] [place] [address] Tanya Sosa MD Discharge Disposition: Home or Self Care (Routine Discharge) 09/25/2024 Travel 09/14/2024 Telephone [facility] [address] [place] [address] Ryan Patricia MD Other 09/14/2024 Telephone [facility] [address] Frank Smith MD Reschedule 09/14/2024 Telephone [facility] [address] [place] [address] Ryan Patricia MD Reschedule 08/14/2024 3:15 AM BENZENE STILL UTILITY OPERATOR Allied Health/Nurse Visit [facility] [address] [place] [address] Frank Smith MD from Last 3 Months Family History Medical History Relation Comments COPD Mother Relation Status Comments Mother Social History Tobacco Use Types Packs/Day Years Used Date Smoking Tobacco: Every Day Cigarettes Smokeless Tobacco: Never Alcohol Use Standard Drinks/Week Comments No 0 (1 standard drink = 0.6 oz pur e alcohol) Sex and Gender Information Value Date Recorded Sex Assigned at Male 09/25/2024 4:31 PM BENZENE STILL UTILITY OPERATOR Legal Sex Male 10:15 AM CDT Gender Identity Not on file Sexual Orientation Not on file 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 on file Not on file Not on file Last Filed Vital Signs Vital Sign Reading Time Taken Comments Blood Pressure 130/70 10/10/2023 12:54 PM CDT Pulse 68 10/10/2023 12:54 PM CDT Temperature 36.7 C (98.1 F) 09/06/2020 8:31 AM BENZENE STILL UTILITY OPERATOR Respiratory Rate 16 10/10/2023 12:54 PM CDT Oxygen Saturation 95% 10/10/2023 12:54 PM CDT Inhaled Oxygen Concentration - - Weight 115.2 kg (254 lb) 10/10/2023 12:54 PM CDT Height 190.5 cm (6' 3 ) 10/10/2023 12:54 PM CDT Body Mass Index 31.75 10/10/2023 12:54 PM CDT Plan of Treatment Upcoming Encounters Date Type Department Care Team (Late st Contact Info) Description 10/16/2024 1:[address] [facility] [address] [place] [address] Tanya Sosa MD [address] [place] [phone] 10/16/2024 2:[address] [facility] [address] [place] [address] Tanya Sosa MD [address] [place] [address] 11/27/2024 10:30 AM CDT Allied Health/Nurse Visit [facility] [place] [address] [place] [address] Frank Smith MD [address] [place] [address] 11/27/2024 10:45 AM CDT Office Visit [facility] [place] [address] [place] [address] Frank Smith MD [address] [place] [address] 01/19/2025 2:00 AM CDT Allied Health/Nurse Visit [facility] [address] [place] [address] Frank Smith MD [address] [place] [address] Health Maintenance Due Date Last Done Comments Colorectal Cancer Screening Colonoscopy (10 Years) 1962 Annual Physical 1965 Pneumococcal Vaccine: Pediatrics (0 to 5 Years) and At-Risk Patients (6 to 64 Years) (1 of 2 - PCV) 1968 Hepatitis C 1980 DTaP, Tdap and Td Vaccines ( 1 - Tdap) 1981 Zoster Vaccines (1 of 2) 2012 RSV Immunization or 60+ Years (1 - Risk 60-74 years 1-dose series) 2022 COVID-19 Vaccine (3 - 2023-2 5 season) 2024 11/04/2020, 10/05/2020 Influenza Adult (#1) 2024 PHQ-2 (Physician [place]) 07/29/2024 Meningococcal B Vaccine Aged Out No l onger eligible based on patient's age to complete this topic Meningococcal Vaccine Aged Out No leeanne isidro eligible based on patient's age to complete this topic RSV Immunizations Under 20 Months Aged Out No longer eligible b ased on patient's age to complete this topic Medical Devices Implanted Type Area Waste Water Operator Device Identifier Shelf Expiration Date Model / Serial / Lot Medtronic Ra Lead- 020 Implanted:Qt y: 1 on 06/19/2020 by Frank Smith MD Lead Implant [employer] 04/08/2022 CAPSUREF IX 5076-52 / [id number] / Medtronic Rv Lead- 020 Implanted:Qt y: 1 on 06/19/2020 by Frank Smith MD Lead Implant [employer] 02/08/2022 CAPSUREF IX 5076-58 / [id number] / Medtronic Eliz Mri Dr- 0 Implanted:Qt y: 1 on 06/19/2020 by Frank Smith MD Pacemaker [employer] 10/09/2021 [id number] / [id number] / Treo Right Iliac Stent-09/05/19 Implanted: by Elba Mace MD (Quantity not on file) Stent Right: Iliac [employer] - DIV TER 03/28/2023 [id number] U / / [id number] Treo Left Iliac Stent-09/05/19 Implanted:Qt y: 1 on 09/05/2020 by Elba Mace MD Stent Left: Iliac [employer] - DIV TER [id number] U / / [id number] Tero Abd Aorta Stent-09/05/19 Implanted: by Elba Mace MD (Quantity not on file) Stent Aorta [employer] - DIV TER 06/01/2022 [id number] U / / [id number] Procedures Procedure Name Priority Date/Time Associated Diagnosis Comments CTA ABD+PEL Routine 09/25/2024 1:13 PM BENZENE STILL UTILITY OPERATOR AAA (abdominal aortic aneurysm) Iliac artery aneurysm, bilateral from Last 3 Months Results * CTA ABD+PEL (09/25/2024 1:13 PM BENZENE STILL UTILITY OPERATOR) Anatomical Region Laterality Modality Abdomen, Pelvis Computed Tomogra phy 10/01/2024 12:2 1 PM BENZENE STILL UTILITY OPERATOR Impressions 10/01/2024 1:24 PM BENZENE STILL UTILITY OPERATOR IMPRESSION: 1. Redemonstration of bilateral type I B endoleak in the distal common iliac arteries with increasing size of bilateral common iliac artery aneurysms as detailed above. 2. Status post aorto iliac stent graft with stable size of the excluded aortic aneurysm sac. While there is adequate assessment of the type I B leak in the arterial phase, this study was inadvertently performed without inclusion of a portal venous phase, which could obscure presence of type II endoleak. 3. Minimal tree-in-bud opacity in both lung bases which may reflect mild bronchiolitis versus aspiration. Ordered By: TANYA SOSA Interpreted By: César Almaraz MD, 10/01/2024 12:21 PM Narrative 10/01/2024 1:24 PM BENZENE STILL UTILITY OPERATOR [place] [id number] [facility] [place] [address] STUDY: CT angiogram abdomen and pelvis without and with contrast INDICATION: Follow-up abdominal aortic aneurysm status post endograft repair TECHNIQUE: Before and after administration of 92 mL Isovue-370 IV contrast, unenhanced and arterial phase multidetector CT images were obtained through the abdomen and pelvis. Multiplanar and MIP images were created and reviewed. 3D and/or MIP Post-processed images were reconstructed using dedicated software, with concurrent physician supervision and protocol modification as needed. A dose lowering technique was used for this procedure, which may include, but is not limited to, dose reduction techniques, automated exposure control, the use of a iterative reconstruction, and ALARA (as low as reasonably achievable)/image gently techniques. COMPARISON: 11/14/2023 FINDINGS: CTA: There is variant mesenteric arterial branching. Right hepatic artery arises from the common hepatic proximal to the gastroduodenal artery origin. Anatomy is otherwise conventional. The celiac and superior mesenteric artery origins are widely patent. Single bilateral renal arteries are present, without evidence of renal artery stenosis. The patient has undergone prior aortobiiliac stent graft placement. Residual aneurysm sac measures 5.1 x 4.7 cm, as compared to 5.0 x 4.8 cm on remeasurement of a comparable section from prior exam. Bilateral type I B endoleak is noted in the common iliac arteries. Distal right common iliac artery aneurysm has its largest dimensions of 3.6 x 3.5 cm at a level slightly above the end of the existing stent graft, while the aneurysm just below the stent graft but above the bifurcation measures 3.0 x 2.8 cm. The latter measurement is increased compared to prior exam, at which time dimension of the aneurysm below the existing stent graft was about 2.6 x 2.4 cm. On the left, distal common iliac artery aneurysm measures 4.0 x 3.8 cm. This is also increased in size compared to about 3.7 x 3.7 cm measured utilizing double oblique technique on the previous study. There is marked tortuosity of both internal and external iliac arteries bilaterally. No additional aneurysm is seen on the right side. There is borderline aneurysmal dilation of the distal left external iliac artery up to about 1.2 cm. Bilateral common femoral arteries are widely patent.The bilateral common, internal, and external iliac arteries are patent without flow-limiting stenosis. Nonvascular findings: Heart size is normal. There are partially imaged pacing leads. Minimal subpleural tree-in-bud opacity is seen in the bilateral lung bases, possibly mild bronchiolitis versus aspiration. Liver: Unremarkable, without mass or biliary dilation. No focal parenchymal abnormality in the arterial phase. Gallbladder and biliary tree: The common bile duct is nondilated. The gall bladder is normal. Pancreas: Normal. Spleen: Normal. Adrenal glands: Normal. Kidneys: The nephrograms are symmetric. There is no hydronephrosis. Bowel: Nondilated without focal thickening or evidence of inflammation. Peritoneum: There is no ascites, pneumoperitoneum, or adenopathy. Retroperitoneum: There is no retroperitoneal adenopathy. Pelvis: Urinary bladder is unremarkable. Prostate, seminal vesicles, rectum, and perirectal fat appear normal. There is no pelvic adenopathy or free fluid. Procedure Note César Almaraz MD - 10/01/[address] [place] [address] STUDY: CT angiogram abdomen and pelvis without and with contrast INDICATION: Follow-up abdominal aortic aneurysm status post endograftrepair TECHNIQUE: Before and after administration of 92 mL Isovue-370 IVcontrast, unenhanced and arterial phase multidetector CT images wereobtained through the abdomen and pelvis. Multiplanar and MIP images werecreated and reviewed. 3D and/or MIP Post-processed images werereconstructed using dedicated software, with concurrent physiciansupervision and protocol modification as needed. A dose lowering techniquewas used for this procedure, which may include, but is not limited to,dose reduction techniques, automated exposure control, the use of aiterative reconstruction, and ALARA (as low as reasonablyachievable)/image gently techniques. COMPARISON: 11/14/2023 FINDINGS: CTA: There is variant mesenteric arterial branching. Right hepatic arteryarises from the common hepatic proximal to the gastroduodenal arteryorigin. Anatomy is otherwise conventional. The celiac and superiormesenteric artery origins are widely patent. Single bilateral renalarteries are present, without evidence of renal artery stenosis. Thepatient has undergone prior aortobiiliac stent graft placement. Residualaneurysm sac measures 5.1 x 4.7 cm, as compared to 5.0 x 4.8 cm onremeasurement of a comparable section from prior exam. Bilateral type I Bendoleak is noted in the common iliac arteries. Distal right common iliacartery aneurysm has its largest dimensions of 3.6 x 3.5 cm at a levelslightly above the end of the existing stent graft, while the aneurysmjust below the stent graft but above the bifurcation measures 3.0 x 2.8cm. The latter measurement is increased compared to prior exam, at whichtime dimension of the aneurysm below the existing stent graft was about2.6 x 2.4 cm. On the left, distal common iliac artery aneurysm measures4.0 x 3.8 cm. This is also increased in size compared to about 3.7 x 3.7cm measured utilizing double oblique technique on the previous study.There is marked tortuosity of both internal and external iliac arteriesbilaterally. No additional aneurysm is seen on the right side. There isborderline aneurysmal dilation of the distal left external iliac artery upto about 1.2 cm. Bilateral common femoral arteries are widely patent.Thebilateral common, internal, and external iliac arteries are patent withoutflow-limiting stenosis. Nonvascular findings: Heart size is normal. There are partially imaged pacing leads. Minimalsubpleural tree-in-bud opacity is seen in the bilateral lung bases,possibly mild bronchiolitis versus aspiration. Liver: Unremarkable, without mass or biliary dilation. No focalparenchymal abnormality in the arterial phase. Gallbladder and biliary tree: The common bile duct is nondilated. Thegall bladder is normal. Pancreas: Normal. Spleen: Normal. Adrenal glands: Normal. Kidneys: The nephrograms are symmetric. There is no hydronephrosis. Bowel: Nondilated without focal thickening or evidence of inflammation. Peritoneum: There is no ascites, pneumoperitoneum, or adenopathy. Retroperitoneum: There is no retroperitoneal adenopathy. Pelvis: Urinary bladder is unremarkable. Prostate, seminal vesicles,rectum, and perirectal fat appear normal. There is no pelvic adenopathy orfree fluid. IMPRESSION: 1. Redemonstration of bilateral type I B endoleak in the distal commoniliac arteries with increasing size of bilateral common iliac arteryaneurysms as detailed above. 2. Status post aorto iliac stent graft with stable size of the excludedaortic aneurysm sac. While there is adequate assessment of the type I Bleak in the arterial phase, this study was inadvertently performed withoutinclusion of a portal venous phase, which could obscure presence of typeII endoleak. 3. Minimal tree-in-bud opacity in both lung bases which may reflect mildbronchiolitis versus aspiration. Ordered By: TANYA SOSA Interpreted By: César Almaraz MD, 10/01/2024 12:21 PM us Tanya Sosa MD CT Final Result from Last 3 Months Insurance [facility] Advance Directives * Full Code (Latest Code Status on File) Date Activated Date Inactivated Comments 09/05/2020 1:13 PM 09/06/2020 2:21 PM * Full Code Date Activated Date Inactivated Comments 06/19/2020 2:34 PM 06/19/2020 10:54 PM * Full Code Date Activated Date Inactivated Comments 06/18/2020 6:57 PM 06/19/2020 2:34 PM Care Teams Machine Chocolate Molder Relationship Specialty Start Date End Date Rose, Niranjan, MD [address] [place] [address] PCP - General FAMILY PRACTICE 05/29/16 Frank Smith MD [address] [place] [address] EP Tool Maker CLINICAL CARDIAC ELECTROPHYSIOLOGY 08/15/20 Ryan Patricia MD [address] [facility] [address] [place] [address] Physician INTERVENTIONAL CARDIOLOGY 10/10/23 Tanya Sosa MD [address] [place] [address] Consulting Physician VASCULAR SURGERY 11/22/23
--- OUTSIDE RECORDS SUMMARY | 2024-10-09 07:11 | XMS_ITS | Encounter Summary ---
Author Organization [facility] Address [address] [place] [address] Care Team Providers Care Pest Controller Name Role Phone Niranjan Rose MD Primary Care Provider [phone] Jonathan Becker MD Unavailable Unavailabl e Elba Mace MD Unavailable [phone] Frank Smith MD Unavailable [phone] Ryan Patricia MD Unavailable [phone] Orlando Sosa MD Unavailable Encounter Details Date Type Department Care Team (Late st Contact Info) Description 09/07/2020 Hospital Follow-up Call [facility] Cardiovascular Care Unit [address] [place] [address] Ara Avila, RN Social History Tobacco Use Types Packs/Day Years Used Date Smoking Tobacco: Every Day Cigarettes Smokeless Tobacco: Never Alcohol Use Standard Drinks/Week Comments No 0 (1 standard drink = 0.6 oz pur e alcohol) Sex and Gender Information Value Date Recorded Sex Assigned at Male 09/25/2024 4:31 PM AUTOMATION QA LEAD Legal Sex Male 10:15 AM CDT Gender Identity Not on file Sexual Orientation Not on file 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 No / Unsure 09/05/2020 8:57 AM AUTOMATION QA LEAD documented as of this encounter Functional Status * RETIRED Are you deaf or do you have serious difficulty hearing Answer Date of Assessment Author Status No 06/18/2020 9:56 PM AUTOMATION QA LEAD Activ e * RETIRED Are you blind or do you have serious difficulty seeing, even when wearing glasses? Answer Date of Assessment Author Status No 06/18/2020 9:56 PM AUTOMATION QA LEAD Activ e * Do you have serious [...] CDT Appointment [facility] [address] [place] [address] Orlando Sosa MD [address] [place] [phone] 10/16/2024 2:[address] [facility] [address] [place] [address] Orlando Sosa MD [address] [place] [phone] 11/27/2024 10:30 AM CDT Allied Health/Nurse Visit [facility] [address] [place] [address] Frank Smith MD [address] [place] [address] 11/27/2024 10:45 AM CDT Office Visit [facility] [address] [place] [address] Frank Smith MD [address] [place] [address] 01/19/2025 2:00 AM CDT Allied Health/Nurse Visit [facility] [address] [place] [address] Frank Smith MD [address] [place] [address] documented as of this encounter Visit Diagnoses Not on filedocumented in this encounter Care Teams Pest Controller Relationship Specialty Start Date End Date Niranjan Rose MD [address] [place], [place] [id number] PCP - General FAMILY PRACTICE 05/29/16 Jonathan Becker MD [address] [place] [address] [place] Small Package And Bundle Sorter Clerk CARDIOVASCULAR DISEASE 05/29/16 09/13/24 Elba Mace MD [address] [place] [address] Consulting Physician VASCULAR SURGERY 07/19/20 09/13/24 Frank Smith MD [address] [place] [address] EP Small Package And Bundle Sorter Clerk CLINICAL CARDIAC ELECTROPHYSIOLOGY 08/15/20 Ryan Patricia MD [address] [facility][1] [address] [place] [address] Physician INTERVENTIONAL CARDIOLOGY 10/10/23 Orlando Sosa MD [address] [place] [address] Consulting Physician VASCULAR SURGERY 11/22/23 documented as of this encounter
--- OUTSIDE RECORDS SUMMARY | 2024-10-09 07:11 | XMS_ITS | Encounter Summary ---
Author Organization [facility] Address [address] [place] [address] Care Team Providers Care Geriatric Case Manager Name Role Phone Niranjan Rose MD Primary Care Provider Jonathan Becker MD Unavailable Unavailabl e Elba Mace MD Unavailable [phone] Frank Smith MD Unavailable [phone] Ryan Patricia MD Unavailable [phone] Orlando Sosa MD Unavailable Encounter Details Date Type Department Care Team (Late st Contact Info) Description 06/25/2016 Abstract [facility] [address] [place] [address] Jonathan Becker MD Social History Tobacco Use Types Packs/Day Years Used Date Smoking Tobacco: Every Day Cigarettes Alcohol Use Standard Drinks/Week Comments No 0 (1 standard drink = 0.6 oz pur e alcohol) Sex and Gender Information Value Date Recorded Sex Assigned at Male 09/25/2024 4:31 PM VIDEO GAME ANIMATOR Legal Sex Male 10:15 AM CDT Gender Identity Not on file Sexual Orientation Not on file 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 [address] Orlando Sosa MD [address] [place] [address] 10/16/2024 2:00 PM CDT Appointment [facility] [address] [place] [address] Orlando Sosa MD [address] [place] [address] 11/27/2024 10:30 AM CDT Allied Health/Nurse Visit [facility] [address] [place] [address] Frank Smith MD [address] [place] [address] 11/27/2024 10:45 AM CDT Office Visit [facility] [address] [place] [address] Frank Smith MD [address] [place] [address] 01/19/2025 2:00 AM CDT Allied Health/Nurse Visit [facility] [address] [address] Frank Smith MD [address] [place] [address] documented as of this encounter Visit Diagnoses Not on filedocumented in this encounter Additional Health Concerns Infection Onset Date Last Indicated Resolved Time COVID-19 Rule Out 06/18/2020 06/18/2020 06/18/2020 8:43 PM VIDEO GAME ANIMATOR COVID-19 Rule Out 09/02/2020 09/02/2020 09/03/2020 2:36 PM VIDEO GAME ANIMATOR documented as of this encounter Care Teams Geriatric Case Manager Relationship Specialty Start Date End Date Niranjan Rose MD [address] [place] [address] PCP - General FAMILY PRACTICE 05/29/16 Jonathan Becker MD [address] [place] [address] [place] Tunnel Man CARDIOVASCULAR DISEASE 05/29/16 09/13/24 Elba Mace MD [address] [place] [address] Consulting Physician VASCULAR SURGERY 07/19/20 09/13/24 Frank Smith MD [address] [place] [address] EP Tunnel Man CLINICAL CARDIAC ELECTROPHYSIOLOGY 08/15/20 Ryan Patricia MD [address] [facility] [address] [place] [address] Physician INTERVENTIONAL CARDIOLOGY 10/10/23 Orlando Sosa MD [address] [place] [address] Consulting Physician VASCULAR SURGERY 11/22/23 documented as of this encounter
--- OUTSIDE RECORDS SUMMARY | 2024-10-09 07:12 | XMS_ITS | Clinical Summary ---
Author Organization [facility] Address [address] [place] [address] Care Team Providers Care It Professional Name Role Phone Niranjan Rose MD Primary Care Provide r Allergies Active Allergy Reactions Criticality Noted Date Comments Aspirin Unknown 05/29/2016 Medications amLODIPine (NORVASC) 5 mg tablet 0 7 Active DESMOPRESSIN 10 mcg/spray (0.1 mL) solution 5 7 Active SUMAtriptan (IMITREX) 100 mg tabletIndications :Migraine Take 100 mg by mouth. Active SUMAtriptan (IMITRIX) 6 mg/0.5 mL injection 4 8 Active B complex 72-wuokz-H-biot-z inc [id number] dp-ni-vbz-mg tablet Take by mouth. Active ibuprofen (ibuprofen) 200 mg tab/cap Take by mouth every 6 (six) hours as needed for pain. Active MULTIVIT-MIN/FOLI C/VIT K/LYCOP (ONE-A-DAY MEN'S MULTIVITAMIN ORAL) Take by mouth. Active ascorbic acid (vitamin C) 1,000 mg tablet Take 1,000 mg by mouth daily. Active testosterone 20.25 mg/1.25 gram (1.62 %) gel in metered-dose pump Place 20.25 mg on the skin daily. Take 2 squirts to each arm daily 50 g 4 8 Active testosterone cypionate (DEPO-TESTOTERONE ) 200 mg/mL injection INJECT 1 ML IN SHOULDER OR BUTTOCKS EVERY 14 DAYS 2 mL 1 8 Active Active Problems Problem Noted Date Diagnosed Date Primary testicular hypogonadism 08/08/2017 Assessment & Plan (08/08/2017 3:42 PM SEWER CONNECTOR): Detrimental effects on hypogonadism were discussed, including decreased stamina, decreased libido and bone and muscle mass loss. Stop Testosterone injections Start Androgel If not approved by insurance, will Check T levels, off of the medictions for 4 wks. 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 Medical History Medical History Date Comments Hypogonadism in male Hypertension Migraine Family History Medical History Relation Name Comments Cancer Mother Relation Name Status Comments Father Mother Social History Tobacco Use Types Packs/Day Years Used Date Smoking Tobacco: Every Day Cigarettes Alcohol Use Standard Drinks/Week Comments No 0 (1 standard drink = 0.6 oz pur e alcohol) Personal Safety Answer Date Recorded Getting School Help Needed Not on file 10/11 Sex and Gender Information Value Date Recorded Sex Assigned at Not on file Legal Sex Male 12:36 AM SEWER CONNECTOR Gender Identity Not on file Sexual Orientation Not on file Obstetrics History Last Filed Vital Signs Vital Sign Reading Time Taken Comments Blood Pressure 122/84 08/08/2017 10:18 AM SEWER CONNECTOR Pulse 70 08/08/2017 10:18 AM SEWER CONNECTOR Temperature - - Respiratory Rate 12 08/08/2017 10:18 AM SEWER CONNECTOR Oxygen Saturation - - Inhaled Oxygen Concentration - - Weight 116.6 kg (257 lb) 08/08/2017 10:18 AM SEWER CONNECTOR Height 193 cm (6' 4 ) 08/08/2017 10:18 AM SEWER CONNECTOR Body Mass Index 31.28 08/08/2017 10:18 AM SEWER CONNECTOR Plan of Treatment Not on file Insurance BOBBY PREFERRED Care Teams It Professional Relationship Specialty Start Date End Date Niranjan Rose MD [address] [place] [address] PCP - General Family Medicine 08/05/17
--- OUTSIDE RECORDS SUMMARY | 2024-10-09 07:12 | XMS_ITS | Referral Summary ---
Author Organization [facility] Address [address] [place] [address] Care Team Providers Care Vending Enterprises Supervisor Name Role Phone Niranjan Rose MD Primary Care Provide r Allergies Active Allergy Reactions Criticality Noted Date Comments Aspirin Unknown 05/29/2016 Medications amLODIPine (NORVASC) 5 mg tablet 0 7 Active DESMOPRESSIN 10 mcg/spray (0.1 mL) solution 5 7 Active SUMAtriptan (IMITREX) 100 mg tabletIndications :Migraine Take 100 mg by mouth. Active SUMAtriptan (IMITRIX) 6 mg/0.5 mL injection 4 8 Active B complex 76-ypdll-R-biot-z inc [id number] jp-mh-jqr-mg tablet Take by mouth. Active ibuprofen (ibuprofen) [...] 08/08/2017 Assessment & Plan (08/08/2017 3:42 PM FIRE MEDIC): Detrimental effects on hypogonadism were discussed, including decreased stamina, decreased libido and bone and muscle mass loss. Stop Testosterone injections Start Androgel If not approved by insurance, will Check T levels, off of the medictions for 4 wks. 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 Social History Tobacco Use Types Packs/Day Years Used Date Smoking Tobacco: Every Day Cigarettes Alcohol Use Standard Drinks/Week Comments No 0 (1 standard drink = 0.6 oz pur e alcohol) Personal Safety Answer Date Recorded Getting School Help Needed Not on file 10/11 Sex and Gender Information Value Date Recorded Sex Assigned at Not on file Legal Sex Male 12:36 AM FIRE MEDIC Gender Identity Not on file Sexual Orientation Not on file Last Filed Vital Signs Vital Sign Reading Time Taken Comments Blood Pressure 122/84 08/08/2017 10:18 AM FIRE MEDIC Pulse 70 08/08/2017 10:18 AM FIRE MEDIC Temperature - - Respiratory Rate 12 08/08/2017 10:18 AM FIRE MEDIC Oxygen Saturation - - Inhaled Oxygen Concentration - - Weight 116.6 kg (257 lb) 08/08/2017 10:18 AM FIRE MEDIC Height 193 cm (6' 4 ) 08/08/2017 10:18 AM FIRE MEDIC Body Mass Index 31.28 08/08/2017 10:18 AM FIRE MEDIC Plan of Treatment Not on file Insurance [employer]OBBY PREFERRED Member Subscriber Plan / Payer (Ef fective 2017-Present) Name:Alejandro Jang Relation to Subscriber:Self Name:Alejandro Jang Payer ID:[id number] (NAIC) Type:[facility] Address: [facility] [id number] [place] [id number] Care Teams Vending Enterprises Supervisor Relationship Specialty Start Date End Date Niranjan Rose MD [address] [place] [address] PCP - General Family Medicine 08/05/17
--- OUTSIDE RECORDS SUMMARY | 2024-10-09 07:12 | XMS_ITS | Encounter Summary ---
Author Organization [facility] Address [address] [place] [address] Care Team Providers Care Assembler Adjuster Name Role Phone Niranjan Rose MD Primary Care Provider Jonathan Becker MD Unavailable Unavailabl e Elba Mace MD Unavailable [phone] Frank Smith MD Unavailable [phone] Ryan Patricia MD Unavailable [phone] Orlando Sosa MD Unavailable Encounter Details Date Type Department Care Team (Late Contact Info) Description 01/03/2019 Abstract [facility] [address] [place] [address] , Generic Conversion, Social History Tobacco Use Types Packs/Day Years Used Date Smoking Tobacco: Every Day Cigarettes Alcohol Use Standard Drinks/Week Comments No 0 (1 standard drink = 0.6 oz pur e alcohol) Sex and Gender Information Value Date Recorded Sex Assigned at Male 09/25/2024 4:31 PM BUSHING AND BROACH OPERATOR Legal Sex Male 10:15 AM CDT Gender Identity Not on file Sexual Orientation Not on file 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 [address] [place] [address] Orlando Sosa MD [address] [place] [address] 10/16/2024 2:00 PM CDT Appointment [facility] [address] [place] [address] Orlando Sosa MD [address] [place] [address] 11/27/2024 10:30 AM CDT Allied Health/Nurse Visit [facility] [address] [place] [address] Frank Smith MD [address] [place] [address] 11/27/2024 10:45 AM CDT [facility] [address] [place] [address] Frank Smith MD [address] [place] [address] [phone] 01/19/2025 2:00 AM CDT Allied Health/Nurse Visit [facility] [address] [place] [address] Frank Smith MD [address] [place] [address] documented as of this encounter Visit Diagnoses Not on filedocumented in this encounter Additional Health Concerns Infection Onset Date Last Indicated Resolved Time COVID-19 Rule Out 06/18/2020 06/18/2020 06/18/2020 8:43 PM BUSHING AND BROACH OPERATOR COVID-19 Rule Out 09/02/2020 09/02/2020 09/03/2020 2:36 PM BUSHING AND BROACH OPERATOR documented as of this encounter Care Teams Assembler Adjuster Relationship Specialty Start Date End Date Niranjan Rose MD [address] [place] [address] PCP - General FAMILY PRACTICE 05/29/16 Jonathan Becker MD [address] [place] [address] [place] Vacuum Truck Driver CARDIOVASCULAR DISEASE 05/29/16 09/13/24 Elba Mace MD [address] [place] [address] Consulting Physician VASCULAR SURGERY 07/19/20 09/13/24 Frank Smith MD [address] [place] [address] EP Vacuum Truck Driver CLINICAL CARDIAC ELECTROPHYSIOLOGY 08/15/20 Ryan Patricia MD [address] [facility] [address] [place] [address] Physician INTERVENTIONAL CARDIOLOGY 10/10/23 Orlando Sosa MD [address] [place] [address] Consulting Physician VASCULAR SURGERY 11/22/23 documented as of this encounter
--- OUTSIDE RECORDS SUMMARY | 2024-10-09 07:12 | XMS_ITS | Encounter Summary ---
Author Organization [facility] Address [address] [place] [address] Care Team Providers Care Wired Music Operator Name Role Phone Niranjan Rose MD Primary Care Provider [phone] Jonathan Becker MD Unavailable Unavailabl e Elba Mace MD Unavailable [phone] Frank Smith MD Unavailable [phone] Ryan Patricia MD Unavailable [phone] Orlando Sosa MD Unavailable Encounter Details Date Type Department Care Team (Late st Contact Info) Description 06/20/2020 Hospital Follow-up Call [facility] Cardiovascular Care Unit [address] [place] [address] Marisa Ortiz, RN Social History Tobacco Use Types Packs/Day Years Used Date Smoking Tobacco: Every Day Cigarettes Smokeless Tobacco: Never Alcohol Use Standard Drinks/Week Comments No 0 (1 standard drink = 0.6 oz pur e alcohol) Sex and Gender Information Value Date Recorded Sex Assigned at Male 09/25/2024 4:31 PM TABLE ASSEMBLER METAL Legal Sex Male 10:15 AM CDT Gender Identity Not on file Sexual Orientation Not on file 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 No / Unsure 06/18/2020 4:46 PM TABLE ASSEMBLER METAL documented as of this encounter Functional Status * RETIRED Are you deaf or do you have serious difficulty hearing Answer Date of Assessment Author Status No 06/18/2020 9:56 PM TABLE ASSEMBLER METAL Activ e * RETIRED Are you blind or do you have serious difficulty seeing, even when wearing glasses? Answer Date of Assessment Author Status No 06/18/2020 9:56 PM TABLE ASSEMBLER METAL Activ e * Do you have serious difficulty walking or climbing stairs? Answer Date of Assessment Author Status No 06/18/2020 9:56 PM TABLE ASSEMBLER METAL Mere Desouza RN Active * Do you have difficulty [...] CDT Appointment [facility] [address] [place] [address] Orlando Sosa MD [address] [place] [phone] 10/16/2024 2:[address] [facility] [address] [place] [address] Orlando Sosa MD [address] [place] [address] 11/27/2024 10:30 AM CDT Allied Health/Nurse Visit [facility] [address] [place] [address] Frank Smith MD [address] [place] [address] 11/27/2024 10:45 AM CDT [facility] [address] [place] [address] Frank Smith MD [address] [place] [address] 01/19/2025 2:00 AM CDT Allied Health/Nurse [facility] [address] [place] [address] Frank Smith MD [address] [place] [address] documented as of this encounter Visit Diagnoses Not on filedocumented in this encounter Additional Health Concerns Infection Onset Date Last Indicated Resolved Time COVID-19 Rule Out 09/02/2020 09/02/2020 09/03/2020 2:36 PM TABLE ASSEMBLER METAL documented as of this encounter Care Teams Wired Music Operator Relationship Specialty Start Date End Date Niranjan Rose MD [address] [place] [address] PCP - General FAMILY PRACTICE 05/29/16 Jonathan Becker MD [address] [place] [address] [place] Occupational Health Manager CARDIOVASCULAR DISEASE 05/29/16 09/13/24 Elba Mace MD [address] [place] [address] Consulting Physician VASCULAR SURGERY 07/19/20 09/13/24 Frank Smith MD [address] [place] [address] EP Occupational Health Manager CLINICAL CARDIAC ELECTROPHYSIOLOGY 08/15/20 Ryan Patricia MD [address] [facility] [address] [place] [address] Physician INTERVENTIONAL CARDIOLOGY 10/10/23 Orlando Sosa MD [address] [place] [address] Consulting Physician VASCULAR SURGERY 11/22/23 documented as of this encounter
== END 2024-10-09 07:08 | disposition home or self-care (01) ==
LOC: CHSIMG 07:09
PROVIDERS: PCP Family Medicine; Visit Provider Family Medicine
DX: Z12.2 Encounter for screening for malignant neoplasm of respiratory organs (principal); Z87.891 Personal history of nicotine dependence
CPT/HCPCS: 71271